=== PATIENT | female | born 1980 | race Caucasian/White ===

== ENCOUNTER 2022-03-22 11:02 | Day surgery (SDC) | payer OTHER ==
[~2022-03-22] VITALS: Ht 167.6 cm; Wt 92.3 kg
[~2022-03-22 11:02] MED LIST: CHLO50TA PO; NORV5TAB PO; NS 1,000 ML IV ONE
[2022-03-22] MEDS ORDERED: LIDOCAINE 2% 100MG/5ML SDV (FOR ANES.) As Ordered ONE (12:00)
[2022-03-22] MEDS ORDERED: fentaNYL 100 MCG/2 ML INJECTION As Ordered ONE (12:01)
[2022-03-22] MEDS ORDERED: propofoL 500 MG/50 ML VIAL As Ordered ONE (12:01)
[2022-03-22 13:15] VITALS: BP 114/77
== END 2022-03-22 13:24 | disposition home or self-care (01) ==
LOC: M OPP 11:02
PROVIDERS: ATTEND Internal Medicine Gastroenterology
DX: K59.04 Chronic idiopathic constipation (principal); K64.0 First degree hemorrhoids; R12 Heartburn; K22.89 Other specified disease of esophagus; Z79.899 Other long term (current) drug therapy; Z88.8 Allergy status to other drugs, medicaments and biological substances
CPT/HCPCS: 43239; 45378; 88305; J3010

== ENCOUNTER 2022-06-17 10:24 | Emergency (ER) | payer OTHER ==
[~2022-06-17] VITALS: Ht 167.6 cm; Wt 92.6 kg
[~2022-06-17 10:24] MED LIST changes: -NS 1,000 ML IV ONE
[2022-06-17] MEDS ORDERED: PROPARACAINE 0.5% OPHTH SOL 15ML OS ONE (11:10)
[2022-06-17] MEDS ORDERED: FLUORESCEIN OPHTH 1 MG STRIP OS ONE (11:10)
[2022-06-17 11:39] LABS: BASO % 0.4 % (0.0-1.0); EOS % 0.2 % (0.0-3.0); HEMATOCRIT 40.8 % (36.0-47.0); HEMOGLOBIN 13.8 g/dl (12.0-15.5); LYMPH # 0.9 10^3/uL (1.5-5.0); LYMPH % 8.5 % (24.0-44.0); MEAN CORPUSCULAR HEMOGLOBIN 31.8 pg (27.0-33.0); MEAN CORPUSCULAR HGB CONC 33.8 g/dl (32.0-36.5); MONO # 0.6 10^3/uL (0.0-0.8); NEUTROPHILS # 9.5 10^3/uL (1.5-8.5); NEUTROPHILS % 85.5 % (36.0-66.0); PLATELET COUNT, AUTOMATED 209 10^3/uL (150-450); RED BLOOD COUNT 4.34 10^6/uL (4.00-5.40)
[2022-06-17 12:10] LABS: ERYTHROCYTE SEDIMENTATION RATE 12 mm/hr (0-20)
[2022-06-17] MEDS ORDERED: NS 1,000 ML IV ONE (12:15)
[2022-06-17] MEDS ORDERED: KETOROLAC 30 MG/ML 1ML VIAL IV ONE (12:15)
[2022-06-17] MEDS ORDERED: ERYTHROMYCIN OPHTH OINT OS ONE (12:15)
[2022-06-17 12:30] LABS: ALBUMIN 3.5 GM/DL (3.2-5.2); ALT/SGPT 35 U/L (12-78); BILIRUBIN,DIRECT < 0.1 MG/DL (0.0-0.2); BILIRUBIN,TOTAL 0.1 MG/DL (0.2-1.0); C REACTIVE PROTEIN QUANTITATIV < 0.30 MG/DL (0.00-0.30); LIPASE 111 U/L (73-393); POTASSIUM SERUM 3.2 MEQ/L (3.5-5.1); TOTAL PROTEIN 7.5 GM/DL (6.4-8.2)
[2022-06-17] MEDS ORDERED: POTASSIUM CHLORIDE 10MEQ SR TABLET PO ONE (13:30)
[2022-06-17] MEDS ORDERED: POTA10CA32 PO (13:39)
[2022-06-17 14:19] VITALS: BP 129/75
[2022-06-18] MEDS ORDERED: VALT1TAB PO (14:46)
[2022-06-18] MEDS ORDERED: BACT800T5 PO ×2 (14:47→14:58)
== END 2022-06-17 14:56 | disposition home or self-care (01) ==
LOC: M ED 10:24
DX: B02.39 Other herpes zoster eye disease (principal); Z88.8 Allergy status to other drugs, medicaments and biological substances; Z79.899 Other long term (current) drug therapy
CPT/HCPCS: 80047; 80076; 83690; 84132; 85025; 85652; 86140; 87255; 96361; 96374; 99284; J1885

== ENCOUNTER 2022-06-18 11:50 | Emergency (ER) | payer OTHER ==
[~2022-06-18] VITALS: Ht 167.6 cm; Wt 93.6 kg
[~2022-06-18 11:50] MED LIST changes: +POTA10CA32 PO
[2022-06-18] MEDS ORDERED: BACTRIM 160MG/800MG DS TAB PO ONE (14:45)
[2022-06-18] MEDS ORDERED: VALT1TAB PO (14:46)
[2022-06-18] MEDS ORDERED: BACT800T5 PO ×2 (14:47→14:58)
[2022-06-18 15:01] VITALS: BP 143/92
== END 2022-06-18 15:03 | disposition home or self-care (01) ==
LOC: M ED 11:50
DX: L03.213 Periorbital cellulitis (principal); B02.39 Other herpes zoster eye disease; I10 Essential (primary) hypertension; Z88.8 Allergy status to other drugs, medicaments and biological substances; Z79.83 Long term (current) use of bisphosphonates; Z79.2 Long term (current) use of antibiotics; Z79.899 Other long term (current) drug therapy